=== PATIENT | female | born 1960 | race Hispanic/Latino ===

== ENCOUNTER 2017-11-07 13:40 | Emergency (ER) | payer MEDICARE ==
[~2017-11-07] VITALS: Ht 157.5 cm; Wt 73.5 kg
[2017-11-07 16:12] VITALS: BP 144/85
== END 2017-11-07 16:22 | disposition home or self-care (01) ==
LOC: ER 13:40
DX: M75.112 Incomplete rotator cuff tear or rupture of left shoulder, not specified as traumatic (principal); I10 Essential (primary) hypertension
CPT/HCPCS: 99282